=== PATIENT | male | born 1960 | race Caucasian/White ===

== ENCOUNTER 2024-01-03 11:49 | Emergency (ER) | payer MEDICAID, SELFPAY ==
[2024-01-03 12:03] VITALS: BP 197/110; PULSE 81; RESP 16; TEMP 36.9; O2SAT 98
--- NOTE | 2024-01-03 12:45 | DI.CT_ITS ---
Exam(s) CT ABDOMEN PELVIS W EXAM: CT ABDOMEN PELVIS W CLINICAL HISTORY: lower abd pain. ttp left groin TECHNIQUE: Imaging Protocol: Axial computed tomography images with coronal and sagittal reformatted images were created and reviewed. CONTRAST MATERIAL: Intravenous: Omnipaque 350 Contrast volume:100 mL Oral: No COMPARISON: No exams were available for comparison FINDINGS: ABDOMEN: Lung Bases: Normal where visualized. Liver: There is decreased attenuation of the liver consistent with fatty infiltration. No measurable mass. Portal, Superior Mesenteric, and Splenic Veins: Unremarkable. Gallbladder and Biliary Tract: No radiodense calculus or dilation. Pancreas: Normal density, no abnormal calcifications or inflammatory process. Spleen: Normal. Adrenals: No masses seen. Kidneys: Normal size, contour and axis. No radiodense stones or obstructive uropathy. No masses seen. Abdominal Aorta: There is a 3.3 x 3.3 cm infrarenal abdominal aortic aneurysm. Atherosclerotic calci fication is present. Bowel: There is diverticulosis of the colon but no evidence of acute diverticulitis. The stomach is incompletely distended limiting evaluation. There is no evidence of bowel obstruction or bowel wall thickening. Appendix is unremarkable. Peritoneal Cavity: No ascites, collection or mesenteric inflammatory response. No free air. Lymph Nodes: Within normal limits. Bones: Within normal limits for the patient's age. Soft Tissues: There is a small fat containing umbilical hernia. There is a small fat containing left inguinal hernia. PELVIS: Bladder: Symmetric distention, no gross wall thickening. Reproductive Organs: Unremarkable as visualized. Lymph Nodes: Within normal limits. Bones: Within normal limits for the patient's age. IMPRESSION: 1. No acute abdominal or pelvic process. 2. 3.3 x 3.3 cm infrarenal abdominal aortic aneurysm. No evidence of dissection. 3. Colonic diverticulosis without evidence of acute diverticulitis. 4. Small fat containing umbilical hernia and a left fat containing inguinal hernia. 5. Hepatic steatosis. RADIATION DOSE DELIVERED: Total DLP DATA REPOSITORY: All CT scans at this facility are submitted to the National Radiology Data Registry (NRDR) Dose Index Registry (DIR) with the [employer] (ACR). RADIATION OPTIMIZATION: All CT scans at this facility use at least one of these dose optimization te chniques: automated exposure control; mA and/or kV adjustment per patient size (includes targeted exa ms where dose is matched to clinical indication); or iterative reconstruction.
--- NOTE | 2024-01-03 12:58 | ED.GENADUL_ITS ---
Discharge Plan Disposition Patient Disposition: Home Condition: Stable Discharge Details Clinical Impression: Left inguinal hernia, AAA (abdominal aortic aneurysm), Diverticulosis, Hepatic steatosis, Elevated blood pressure reading Primary Care Provider: Unknown,Unknown ED Provider: Jerson Wang Home Meds and New Rx's Prescriptions: New lisinopril 20 mg tablet 20 mg PO DAILY Qty: 30 0RF Discharge Instructions Instructions: Diverticulosis (ED), Nonruptured Abdominal Aortic Aneurysm (DC), Inguinal Hernia (ED) Additional Instructions: Your blood pressure is too high. You need to take blood pressure medicine as prescribed and follow-up with the primary care physician for reassessment. You may need additional blood pressure medication should it not improve. You have a left inguinal hernia that contains fat. Please follow-up with general surgery for elective repair. You have an abdominal aortic aneurysm that is currently 3.3 x 3.3 cm. Please follow-up with vascular surgery. [facility] [place] be contacted at [phone]. Please follow-up with a primary care physician. Return to the ER immediately for any worsening or new concerning symptoms. Referrals: [facility] [Provider Group] [facility] General Mode of arrival: ambulatory . Date/Time Provider Initiated Documentation: 01/03/24 12:24 . Limitations to Documentation: no limitations . Information obtained by: patient . HPI Narrative: 63-year-old male presents with chief complaint of abdominal pain. Patient notes pain in his left groin that he has had over the past few months. He states he was throwing wood few months ago and developed pain after this. Pain initially localized to left groin but now spreads to his right groin. Pain is moderate to severe pain worse with movement of his legs and with certain positions. He denies associated testicular pain or swelling. Related Data Home Medications Medication Instructions Recorded Confirmed lisinopril 20 mg tablet 20 mg PO DAILY #30 tabs 01/03/24 Previous Rx's Medication Instructions Recorded lisinopril 20 mg tablet 20 mg PO DAILY #30 tabs 01/03/24 General Stated Complaint: Abd Prob EREN: 3 Review of Systems Constitutional Constitutional: Denies fever(s) Genitourinary Genitourinary: Reports as per HPI Exam Const General: cooperative and no acute distress HENMT Mouth: mucous membranes dry Eyes Conjunctivae: normal conjunctivae Sclera: normal sclerae Resp Auscultation: clear to auscultation bilaterally, no rales, no rhonchi and no wheezes Cardio Rate: regular rate and not tachycardic Rhythm: regular rhythm GI Inspection: no abdominal wall ecchymosis and obesity Palpation: soft, not firm, no guarding, no masses, not rigid and tender in the LLQ Skin General skin exam: no rashes or lesions noted Neuro General: patient alert, patient awake and tone normal Extrem General: no edema Psych Appearance: grossly normal Mental Status: mental status grossly normal Course Vital Signs Vital signs: Vital Signs Temperature 36.9 C 01/03/24 12:03 Pulse 81 01/03/24 12:03 Respiratory Rate 16 01/03/24 12:03 Blood Pressure 197/110 H 01/03/24 12:03 Pulse Oximetry 98 01/03/24 12:03 Temperature 36.9 C 01/03/24 12:03 Temperature Source Tympanic 01/03/24 12:03 Pulse 81 01/03/24 12:03 Respiratory Rate 16 01/03/24 12:03 Respiratory Effort Normal 01/03/24 12:31 Blood Pressure 197/110 H 01/03/24 12:03 Blood Pressure Position Sitting 01/03/24 12:03 Pulse Oximetry 98 01/03/24 12:03 Oxygen Delivery Method Room Air 01/03/24 12:03 Oxygen Flow Rate 0 01/03/24 12:03 Pain Level 0 01/03/24 12:03 Comment Pain is 0 at rest; with movement/walking increases to 8/10 01/03/24 12:03 Medical Decision Making 1300??63-year-old here with left groin pain over the past few months, now radiating from left groin to right groin, worse with elevation of his legs. No palpable hernia on examination. Plan to obtain CT of the abdomen pelvis to assess for acute surgical pathology including inguinal hernia versus diverticulitis versus AAA versus other. 1439 --Labs reviewed and nondiagnostic. CT of the abdomen pelvis was interpreted by radiology: 1. No acute abdominal or pelvic process. 2. 3.3 x 3.3 cm infrarenal abdominal aortic aneurysm. No evidence of dissection. 3. Colonic diverticulosis without evidence of acute diverticulitis. 4. Small fat containing umbilical hernia and a left fat containing inguinal hernia. 5. Hepatic steatosis. Results were discussed with the patient. Plan for follow-up with general surgery for his hernia and vascular surgery for aortic aneurysm. -- Patient is hypertensive. He notes that he has had chronically elevated high blood pressure and that he stopped taking his lisinopril years ago. I explained to him that persistently elevated blood pressure we will significantly impact his health and that his blood pressure needs to be well-controlled. Plan to initiate treatment with lisinopril today and I will provide a 30-day prescription until he is able to follow-up with a PCP. Patient will need close outpatient follow-up with PCP. Lab Data Lab results reviewed: Yes I reviewed the patient's lab results. Labs: Laboratory Tests Range/Units 01/03/24 01/03/24 13:03 13:07 WBC (4.4-10.8) 10^3/uL 8.98 RBC (4.36-5.78) 10^6/uL 5.22 Hgb (13.5-17.5) g/dL 16.0 Hct (40.0-50.0) % 47.1 MCV (80-95) fL 90 MCH (27.0-33.0) pg 30.7 MCHC (32.0-36.0) % 34.0 RDW (11.8-14.1) % 12.6 Plt Count (130-400) 10^3/uL 281 MPV (8.0-11.0) fL 10.0 Immature Gran % 0.7 Neutrophils % 58.6 Lymphocytes % 24.3 Monocytes % 9.7 Eosinophils % 5.9 Basophils % 0.8 Nucleated RBC % (0.0-0.3) % 0.0 Absolute Neutrophils (1.2-6.7) 10^3/uL 5.27 Absolute Lymphocytes (1.2-3.4) 10^3/uL 2.18 Absolute Monocytes (0.1-0.8) 10^3/uL 0.87 H Absolute Eosinophils (0.0-0.7) 10^3/uL 0.53 Absolute Basophils (0.0-0.2) 10^3/uL 0.07 Sodium (136-145) mmol/L 139 Potassium (3.5-5.1) mmol/L 4.0 Chloride (98-107) mmol/L 102 Carbon Dioxide (21.0-32.0) mmol/L 31.9 Anion Gap (3-11) mmol/L 5.1 BUN (7-18) mg/dL 12 Creatinine (0.70-1.30) mg/dL 1.0 Est GFR (CKD-EPI 2020) (mL/min/1.73m2) 84.57 Glucose (74-106) mg/dL 114 H Calcium (8.5-10.1) mg/dL 8.8 Total Bilirubin (0.2-1.0) mg/dL 0.7 AST (15-37) U/L 34 ALT (16-63) U/L 66 H Alkaline Phosphatase (46-116) U/L 91 Total Protein (6.4-8.2) g/dL 7.2 Albumin (3.4-5.0) g/dL 3.5 Lipase (16-77) U/L 21 Urine Color (Yellow) Yellow Urine Clarity (Clear) Clear Urine pH (5-8) 5.5 Ur Specific Bridger (1.005-1.025) >= 1.030 H Urine Protein (Neg-Trace) mg/dL Negative Urine Ketones (Negative) mg/dL Trace H Urine Blood (Negative) Negative Urine Nitrite (Negative) Negative Urine Bilirubin (Negative) Small H Urine Urobilinogen (Up to 0.2) mg/dL 0.2 Ur Leukocyte Esterase (Negative) Negative Urine Glucose (Negative) mg/dL Negative Quality:SDOH Health Related Social Needs: No Data to Display PFSH All Active Problems (Updated 01/03/24 @ 14:59 by Jerson Wang MD) Elevated blood pressure reading (Acute) Hepatic steatosis (Acute) Diverticulosis (Acute) AAA (abdominal aortic aneurysm) (Acute) Left inguinal hernia (Acute) Social History Smoking risk assessment performed?: No
[2024-01-03] MEDS: Normal Saline 10 ML VIAL IJ (13:11)
[2024-01-03 13:15] LABS: Abs Immature Grans 0.06 10^3/uL (0.0-0.06); Absolute Basophil Count 0.07 10^3/uL (0.0-0.2); Absolute Eosinophil Count 0.53 10^3/uL (0.0-0.7); Absolute Lymphocyte Count 2.18 10^3/uL (1.2-3.4); Absolute Monocyte Count 0.87 10^3/uL (0.1-0.8); Absolute Neutrophil Count 5.27 10^3/uL (1.2-6.7); Basophils % 0.8; Eosinophils % 5.9; HCT 47.1 % (40.0-50.0); Immature Grans % 0.7; Lymphocytes % 24.3; MCH 30.7 pg (27.0-33.0); MCV 90 fL (80-95); Monocytes % 9.7; Neutrophils % 58.6; Platelet Count 281 10^3/uL (130-400); RBC 5.22 10^6/uL (4.36-5.78); RDW 12.6 % (11.8-14.1); RDW-SD 41.8 fL; WBC 8.98 10^3/uL (4.4-10.8)
[2024-01-03 13:18] LABS: Bilirubin Small (Negative); Blood Negative (Negative); Clarity Clear (Clear); Glucose Negative (Negative); Ketones Trace mg/dL (Negative); Leukocyte Esterase Negative (Negative); Nitrite Negative (Negative); Specific Gravity >= 1.030 (1.005-1.025); Urobilinogen 0.2 mg/dL (Up to 0.2); pH 5.5 (5-8)
[2024-01-03 13:32] LABS: ALT 66 U/L (16-63); AST 34 U/L (15-37); Albumin 3.5 g/dL (3.4-5.0); Alkaline Phosphatase 91 U/L (46-116); Anion Gap 5.1 mmol/L (3-11); BUN 12 mg/dL (7-18); Bilirubin, Total 0.7 mg/dL (0.2-1.0); CO2 31.9 mmol/L (21.0-32.0); Calcium 8.8 mg/dL (8.5-10.1); Chloride 102 mmol/L (98-107); Estimated GFR 84.57 (mL/min/1.73m2); Glucose 114 mg/dL (74-106); Lipase 21 U/L (16-77); Sodium 139 mmol/L (136-145); Total Protein 7.2 g/dL (6.4-8.2)
[2024-01-03] MEDS: Normal Saline - Diluent 50 ML VIAL IJ (14:06)
[2024-01-03] MEDS: Omnipaque 350 MG/ML 100 ML BTL IJ (14:07)
[2024-01-03 14:54] VITALS: BP 209/120
[2024-01-03] MEDS: Lisinopril 10 MG TAB 20 MG PO (15:10)
--- NOTE | 2024-01-03 16:12 | NUR.NOTE ---
Referral in Care management mailbox, to establish a PCP. 1 week follow up. Tahira GAMEZ.Nursing Note:
== END 2024-01-03 15:27 | disposition home or self-care (01) ==
PROVIDERS: Emergency Provider Student in an Organized Health Care Education/Training Program
DX: K57.30 Diverticulosis of large intestine without perforation or abscess without bleeding (principal); I71.43 Infrarenal abdominal aortic aneurysm, without rupture; K42.9 Umbilical hernia without obstruction or gangrene; K40.90 Unilateral inguinal hernia, without obstruction or gangrene, not specified as recurrent; R03.0 Elevated blood-pressure reading, without diagnosis of hypertension
CPT/HCPCS: 80053; 83690; 99285; 74177; 81003; 85025; 99284; J3490

== ENCOUNTER 2024-06-06 11:13 | Outpatient (CLI) | payer MEDICAID, SELFPAY ==
[2024-06-06 12:21] LABS: Calculated LDL 145 mg/dL (<100); Cholesterol 223 mg/dL (<200); HDL Cholesterol 41 mg/dL (40-60); Triglyceride 188 mg/dL (<150)
== END 2024-06-06 11:14 | disposition home or self-care (01) ==
LOC: LBO 11:13
PROVIDERS: PCP Nurse Practitioner Family; Visit Provider Surgery
DX: R73.03 Prediabetes (principal); E66.9 Obesity, unspecified; I10 Essential (primary) hypertension; I70.90 Unspecified atherosclerosis; E78.5 Hyperlipidemia, unspecified; E88.89 Other specified metabolic disorders; I71.40 Abdominal aortic aneurysm, without rupture, unspecified; F17.200 Nicotine dependence, unspecified, uncomplicated; J44.9 Chronic obstructive pulmonary disease, unspecified
CPT/HCPCS: 36415; 80061; 83036

== ENCOUNTER 2024-07-03 02:12 | Outpatient (CLI) | payer MEDICAID, SELFPAY ==
[2024-07-03 13:33] LABS: Microalb ug/mg Crea 13.5 ug/mg Cr
[2024-07-03 13:40] LABS: ALT 54 U/L (16-63); AST 23 U/L (15-37); Albumin 3.7 g/dL (3.4-5.0); Alkaline Phosphatase 101 U/L (46-116); BUN 18 mg/dL (7-18); Bilirubin, Total 0.61 mg/dL (0.2-1.0); Calcium 9.6 mg/dL (8.5-10.1); Calculated LDL 87 mg/dL (<100); Chloride 93 mmol/L (98-107); Cholesterol 165 mg/dL (<200); Estimated GFR 84.05 (mL/min/1.73m2); Glucose 122 mg/dL (74-106); HDL Cholesterol 43 mg/dL (40-60); Magnesium 1.7 mg/dL (1.8-2.4); Potassium 3.7 mmol/L (3.5-5.1); Sodium 135 mmol/L (136-145); Total Protein 8.1 g/dL (6.4-8.2); Triglyceride 175 mg/dL (<150)
== END 2024-07-03 02:13 | disposition home or self-care (01) ==
LOC: LBO 02:12
PROVIDERS: PCP Nurse Practitioner Family; Visit Provider Student in an Organized Health Care Education/Training Program
DX: I10 Essential (primary) hypertension (principal); Z13.220 Encounter for screening for lipoid disorders
CPT/HCPCS: 36415; 80053; 80061; 82043; 82570; 83735

== ENCOUNTER 2024-08-07 02:06 | Outpatient (CLI) | payer MEDICAID, SELFPAY ==
--- NOTE | 2024-08-07 | DI.CTLCSR_ITS ---
Exam(s) CT CHEST LUNG CANCER SCREEN EXAM: CT CHEST LUNG CANCER SCREEN CLINICAL HISTORY: TOBACCO DEPENDENCE, F17.210, SCREENING FOR LUNG CANCER TECHNIQUE: Imaging Protocol: Axial computed tomography images with coronal and sagittal reformatted images were created and reviewed. Computer aided detection (CAD) was utilized. COMPARISON: CT CT ABDOMEN PELVIS W from 01/03/2024 FINDINGS: Tracheobronchial tree: Patent where visualized. No bronchiectasis. Pulmonary parenchyma: No consolidation or dominant measurable mass. No architectural distortion. Lung Nodules: There is a 3 mm nodule in the right lower lobe (series 2, image 82). Mediastinum and Yulia: No dominant adenopathy or fluid collection. The esophagus is unremarkable. Thyroid gland: Unremarkable. Lymph nodes: Unremarkable. Pleura: No effusion or pneumothorax. Heart: The heart is not dilated. Coronary artery calcification is seen. No pericardial effusion. Aorta: Thoracic aorta non-dilated.Atherosclerotic calcification is present. Upper abdomen: There is diffuse fatty infiltration of the liver. Upper abdominal valuation is limit ed due to the low-dose technique. Soft Tissues: Unremarkable. Bones: Within normal limits. IMPRESSION: 3 mm right lower lobe pulmonary nodule. Lung RADS Cat 2 - Benign Appearance / Behavior: Nodules with a very low likelihood of becoming a clin ically active cancer due to size or lack of growth Lung-RADS 1.0 CATEGORIES: Category 0 - Prior chest CT exam(s) being located for comparison. Category 1 - Annual screening in 12 months. No nodules or definitely benign nodules. Category 2 - Annual screening in 12 months. Benign appearance. Nodules with low likelihood of becomin g active cancer. Category 3 - 6-month follow-up. Probably benign. Short-term follow-up suggested. Nodules with low lik elihood of becoming active cancer. Category 4A - 3-month follow-up and CT/PET if >8 mm in size. Suspicious finding. Findings which requi re additional testing. Category 4B - Findings which require additional testing and tissue sampling. Suspicious finding. Category 4X - Category 3 or 4 nodules with additional features or imaging findings that increases the suspicion of malignancy. Modifier S- Potentially clinically significant finding. (Non lung cancer) RADIATION DOSE DELIVERED: 35.83mGy.cm Total DLP 35.83mGy.cmTotal DLP DATA REPOSITORY: All CT scans at this facility are submitted to the National Radiology Data Registry (NRDR) Dose Index Registry (DIR) with the [employer] (ACR). RADIATION OPTIMIZATION: All CT scans at this facility use at least one of these dose optimization te chniques: automated exposure control; mA and/or kV adjustment per patient size (includes targeted exa ms where dose is matched to clinical indication); or iterative reconstruction.
== END 2024-08-07 02:26 ==
LOC: DI 02:06
PROVIDERS: PCP Nurse Practitioner Family; Visit Provider Student in an Organized Health Care Education/Training Program
DX: Z12.2 Encounter for screening for malignant neoplasm of respiratory organs (principal); F17.210 Nicotine dependence, cigarettes, uncomplicated; R91.1 Solitary pulmonary nodule
CPT/HCPCS: 71271

== ENCOUNTER 2024-08-07 08:21 | Outpatient (CLI) | payer MEDICAID, SELFPAY ==
[2024-08-07 09:41] LABS: Anion Gap 6.5 mmol/L (3-11); BUN 19 mg/dL (7-18); CO2 33.5 mmol/L (21.0-32.0); CREATININE 1.1 mg/dL (0.70-1.30); Calcium 10.1 mg/dL (8.5-10.1); Chloride 99 mmol/L (98-107); Estimated GFR 74.96 (mL/min/1.73m2); Glucose 147 mg/dL (74-106); Magnesium 1.8 mg/dL (1.8-2.4); Potassium 3.7 mmol/L (3.5-5.1); Sodium 139 mmol/L (136-145)
== END 2024-08-07 08:22 | disposition home or self-care (01) ==
LOC: LBO 08:22
PROVIDERS: PCP Nurse Practitioner Family; Visit Provider Student in an Organized Health Care Education/Training Program
DX: I10 Essential (primary) hypertension (principal)
CPT/HCPCS: 36415; 80048; 83735

== ENCOUNTER 2024-09-17 13:50 | Outpatient (REF) | payer MEDICAID, SELFPAY ==
[2024-09-17 16:11] LABS: Anion Gap 11.8 mmol/L (3-11); BUN 26 mg/dL (7-18); CO2 27.2 mmol/L (21.0-32.0); CREATININE 1.4 mg/dL (0.70-1.30); Calcium 9.9 mg/dL (8.5-10.1); Chloride 99 mmol/L (98-107); Estimated GFR 56.13 (mL/min/1.73m2); Glucose 121 mg/dL (74-106); Potassium 4.3 mmol/L (3.5-5.1); Sodium 138 mmol/L (136-145)
== END 2024-09-17 13:51 | disposition home or self-care (01) ==
LOC: NCHCN 13:50
PROVIDERS: PCP Student in an Organized Health Care Education/Training Program; Visit Provider Student in an Organized Health Care Education/Training Program
DX: I10 Essential (primary) hypertension (principal)
CPT/HCPCS: 80048

== ENCOUNTER 2024-10-08 01:20 | Outpatient (CLI) | payer MEDICAID, SELFPAY ==
--- NOTE | 2024-10-08 07:15 | DI.US_ITS ---
Exam(s) US AAA DIAGNOSTIC EXAM: US AAA DIAGNOSTIC CLINICAL HISTORY: AAA screening/ATHEROSCLEROTIC CALCIFICATION noted on CT,I70.90,I71.40 COMPARISON: CT CT ABDOMEN PELVIS W from 01/03/2024 FINDINGS: Abdominal Aorta: Proximal: 2.7 x 2.6 cm Mid: 2.1 x 2.5 cm Distal: 3.3 x 3.4 cm Iliac's: Right: 1.3 x 1.6 cm Left: 1.4 x 1.4 cm Atherosclerotic disease is present. There is mural thrombus seen in the distal abdominal aortic aneu rysm. IMPRESSION: 3.3 x 3.4 cm distal abdominal aortic aneurysm. DATA REPOSITORY:
== END 2024-10-08 01:40 ==
LOC: DI 01:20
PROVIDERS: PCP Student in an Organized Health Care Education/Training Program; Visit Provider Surgery
DX: Z13.6 Encounter for screening for cardiovascular disorders (principal); I71.40 Abdominal aortic aneurysm, without rupture, unspecified
CPT/HCPCS: 76775

== ENCOUNTER 2024-10-08 07:24 | Outpatient (CLI) | payer MEDICAID, SELFPAY ==
[2024-10-08] MEDS: Inhaler, Assist Device 1 EACH MC (11:15)
[2024-10-08] MEDS: Levalbuterol HFA 15 GM INH 4 PUFF IH (11:15)
--- NOTE | 2024-10-15 16:41 | W.PFT ---
Date of service: 10/08/24 Time of Service: 10:02 Pulmonary Function Test Result Indications: COPD Interpretation Spirometry: There is no airflow limitation. There is restrictive spirometry. Lung Volumes: There is air trapping Diffusion Capacity: Normal diffusion Airway Pressure: Increased airways resistance Impression There is air trapping. Restriction is likely pseudo restriction in the setting of an elevated BMI. Clinical Correlation therefore is recommended.
== END 2024-10-08 07:25 | disposition home or self-care (01) ==
LOC: RT 07:25
PROVIDERS: PCP Student in an Organized Health Care Education/Training Program; Visit Provider Student in an Organized Health Care Education/Training Program
DX: J44.9 Chronic obstructive pulmonary disease, unspecified (principal); F17.210 Nicotine dependence, cigarettes, uncomplicated
CPT/HCPCS: 94726; 94729; 94010

== ENCOUNTER 2024-10-15 06:12 | Day surgery (SDC) | payer MEDICAID, SELFPAY ==
--- NOTE | 2024-10-14 12:54 | W.PM.DSUDISC ---
Date of service: 10/15/24 Discharge Plan Disposition Patient Disposition: Home Discharge Details Reason For Visit: hernia repair x2 Attending Provider: Alejandra De Luna Primary Care Provider: Ezequiel Roche Home Meds and New Rx's Prescriptions: New tramadol 50 mg tablet 50 mg PO Q4H PRNQty: 14 0RF Continued albuterol sulfate 90 mcg/actuation HFA aerosol inhaler 2 puff inhalation Q6H PRN amlodipine 10 mg tablet 10 mg PO DAILY lisinopril 40 mg tablet 40 mg PO DAILY fluticasone propionate 232 mcg/actuation aero powdr breath act w/sensor 1 inh inhalation BID Zyrtec 10 mg capsule 10 mg PO DAILY PRN atorvastatin 20 mg tablet 20 mg PO QHS hydrochlorothiazide 25 mg tablet 25 mg PO DAILY Discharge Instructions Additional Instructions: Dr. De Luna HERNIA REPAIR ? POSTOPERATIVE INSTRUCTIONS Patients who have this type of surgery can usually be expected to return to work within two weeks and have minimal amounts of discomfort. ? ACTIVITY: The day of surgery should be spent resting. However, you can be up for short periods of time, I.E., going to the bathroom or kitchen. Avoid lifting or straining. On the day following surgery, you can be up and about as desired. ? LIFTING: Restrict your lifting to no more than five (5) pounds for two weeks after surgery. ??We will decide when you are done with restrictions and when you can return to work, at your follow-up appointment.? No sexual activity for two weeks.? ? DIET: There are no dietary restrictions following surgery. However, you may want to start with small amounts of liquids to avoid nausea the day of surgery. ? INCISION CARE: You will notice purple skin glue closing the incision.? Do not peel this off- it will wear off on its own.? After 24 hours you may shower. The dressing may be replaced for comfort, but is not necessary. ?An ice bag may be applied to the incision for 72 hours following surgery. ? SIGNS OF INFECTION: It is not unusual to have some black and blue discoloration of the skin around the incision, but also scrotum and penis.? ?It will slowly disappear. If you have any increased redness, drainage, fever (above 100 degrees), please contact your doctor for an examination. ? DISCOMFORT: You may expect to have some mild discomfort at the incision sight. If severe pain develops you should contact your doctor for further instructions. ? URINATION: Patients who have surgery occasionally have problems urinating. If you experience problems and are not able to urinate within 6 hours following your surgery, please call your doctor immediately or go to your nearest Emergency Room for evaluation. ? DRIVING: NO driving for three (3) days after surgery, or if you are still taking narcotic pain medication.? ? MEDICATIONS: Alternate Tylenol 1000mg by mouth every 8 hours and Ibuprofen 600mg every 6 hours. ?Make sure you take ibuprofen with food and not on an empty stomach. ?Take the Tylenol and ibuprofen continuously for the first 72hrs- not just when you have pain.? Use the tramadol for breakthrough pain/pain >7.? Use ICE!?? Twenty minutes on, and then off, continuously for the first 72hours. If you are taking narcotic pain medication, follow the instructions on the label and do not drive. Pain medications can make you very constipated. Make sure you are moving your bowels daily. If not, take Miralax or Milk of Magnesia.?? Anesthesia makes you very constipated.? Take a dose of milk of magnesia the morning after surgery. ? REPORT: Unusual swelling, severe pain, unresolved nausea, signs of infection, or difficulty in urination to your surgeon. Follow up in clinic with Dr. De Luna in 2 weeks.? [phone] I postOp appt should have been made already. If not, please clinic at your earliest convenience to schedule a follow-up appointment. Stand Alone Forms: Anesthesia Discharge Inst., Nerve Block Instructions, Markel Geiger (DSU) Referrals: Alejandra De Luna DO [OSTEOPATHIC DOCTOR] - 10/28/24 10:00 am Activity:: see above Remove Dressings/Wound Care:: 24 hours Shower/Bathe:: 24 hours Diet:: As Tolerated Discharge Orders Discharge Orders: Discharge Order (Routine); Ordered 10/15/24 Ordered By: Alejandra De Luna DS: Diagnosis Discharge Diagnosis (1) Umbilical hernia: Status: Acute (2) COPD (chronic obstructive pulmonary disease): Status: Chronic (3) Smoker: Status: Acute (4) Obesity: Status: Chronic (5) Left inguinal hernia: Status: Inactive Asessment and Plan: The patient is doing well post-op from their L inguinal hernia reapir .? They are having no nausea or vomiting. They are tolerating liquids and a snack. The pt is not having any chest pain or SOB.? Their pain is adequately controlled. They have been able to urinate.? ?HEENT:? no eye pain/drainage/redness/swelling. Mild sore throat ?Cardio- NSR, no chest pain, BP stable- see VS record ?Pulm: no sob or productive cough. No hemoptysis ?Incision- dressing is c/d/i w/ no excessive bleeding or drainage ?I discussed with the patient the findings at the time of surgery and the patient?s progress. ?We reviewed expectations at home; what the patient could expect for recovery time, and in the post-operative period.? We discussed the importance of walking to avoid blood clots and pneumonia.? We discussed and reviewed the patient's post-operative wound care and dressing needs.?? We reviewed their step-kohli pain management plan, Rx called to the pharmacy of their choice.? We reviewed activity and limitations-see discharge instructions. We reviewed warning signs, and when to seek medical attention- see d/c instructions.?? Patient was given a postoperative follow-up appointment. Patient verbalized understanding of their postoperative instructions, how do to take care of themselves and their incision, and the pain management plan. Please see discharge instructions.? (6) Chronic cough: Status: Acute
--- NOTE | 2024-10-14 15:19 | ANES.PREOP_ITS ---
General Info Date of Service Date Performed: 10/15/24 Height: 5 ft 8 in Weight: 92.703 kg Body Mass Index (BMI): 31.0 Surgical Procedure: Operation Date: 10/15/24 07:40 Proposed Procedure Side Surgeon p Herniorrhaphy Inguinal/ Umbilical w/Mesh Left Alejandra De Luna DO Meds Allergies and Home Medications Allergies Allergy/AdvReac Type Severity Reaction Status Date / Time No Known Allergies Allergy Verified 10/15/24 06:35 Home Medication ?Medication ?Instructions ?Recorded albuterol sulfate 90 mcg/actuation 2 puff inhalation Q6H PRN 05/15/24 aerosol inhaler amlodipine 10 mg tablet 10 mg PO DAILY 05/15/24 cetirizine 10 mg capsule (Zyrtec) 10 mg PO DAILY PRN 05/15/24 fluticasone propionate 232 1 inh inhalation BID 05/15/24 mcg/actuation breath activated pwdr inhal,sensor lisinopril 40 mg tablet 40 mg PO DAILY 05/15/24 atorvastatin 20 mg tablet 20 mg PO QHS 09/18/24 hydrochlorothiazide 25 mg tablet 25 mg PO DAILY 09/18/24 Current Visit Medications: Current Medications Generic Name Dose Route Start Last Admin Trade Name Freq PRN Reason Stop Dose Admin Acetaminophen 1,000 mg 10/15/24 06:00 Acetaminophen 500 Mg Tab PO 10/15/24 23:59 PREOP CHARY Albuterol Sulfate 2.5 mg 10/15/24 06:00 Albuterol 2.5 Mg/3 Ml Inh Soln Vial UPD 10/15/24 23:59 PREOP CHARY Gabapentin 600 mg 10/15/24 06:00 Gabapentin 300 Mg Cap PO 10/15/24 23:59 PREOP CHARY Ringer's Solution 1,000 mls @ 80 mls/hr 10/15/24 06:00 IV 10/15/24 23:59 INFUSION CHARY Cefazolin Sodium/Dextrose 2 gm in 50 mls @ 100 mls/hr 10/15/24 06:00 Ancef Duplex IVPB 10/15/24 23:59 PREOP CHARY Ondansetron HCl 4 mg/ Sodium 52 mls @ 200 mls/hr 10/15/24 00:53 Chloride IVPB 11/14/24 00:52 Q6H PRN PRN IV Miscellaneous Supplies 1 each 10/15/24 06:00 Iv Access IV 10/15/24 23:59 DIRECTED CHARY Morphine Sulfate 2 mg 10/15/24 12:53 Morphine 4 Mg/Ml Syr IVP 11/14/24 12:52 Q1H PRN PRN Sodium Chloride 0 ml 10/15/24 06:00 Normal Saline Flush 10 Ml Syr IV 10/15/24 23:59 PRN PRN Sodium Chloride 0 ml 10/15/24 06:00 Normal Saline 10 Ml Vial IJ 10/15/24 23:59 DIRECTED PRN Sterile Water 0 ml 10/15/24 06:00 Water,Injection,Sterile 10 Ml Vial IJ 10/15/24 23:59 DIRECTED PRN Tramadol HCl 50 mg 10/15/24 00:53 Tramadol 50 Mg Tab PO 11/14/24 00:52 Q6H PRN PRN Pain PFSH Active Problems Active Problems: Problem Status Onset Code Chronic cough Acute R05.3 Obesity Chronic E66.9 Pre-diabetes Acute R73.03 Infected dental carries Acute K02.9, K04.7 COPD (chronic obstructive pulmonary disease) Chronic J44.9 Umbilical hernia Acute K42.9 AAA (abdominal aortic aneurysm) without rupture Acute I71.40 Diverticula of colon Acute K57.30 (atherosclerosis) Acute I70.90 Steatosis Acute E88.89 Hyperlipidemia Acute E78.5 Essential hypertension Acute I10 Smoker Acute F17.200 Medical History Medical History Brachial plexus injury repaired surgery Surgical History Surgical History H/O wrist surgery Tobacco Smoking/Tobacco Use Status: Current every day Tobacco Type: cigarettes Alcohol Alcohol Intake: never Substance Use Substance use: Occasionally Substance use type: marijuana Vital Signs and Lab Results Lab Results Blood Type / Crossmatch: 2 No Data to Display Complete Blood Count: 2 No Data to Display Complete Metabolic Panel: 2 Sodium 138 mmol/L (136-145) 09/17/24 11:32 Potassium 4.3 mmol/L (3.5-5.1) 09/17/24 11:32 Chloride 99 mmol/L (98-107) 09/17/24 11:32 Carbon Dioxide 27.2 mmol/L (21.0-32.0) 09/17/24 11:32 BUN 26 mg/dL (7-18) H 09/17/24 11:32 Creatinine 1.4 mg/dL (0.70-1.30) H 09/17/24 11:32 Est GFR (CKD-EPI 2020) 56.13 (mL/min/1.73m2) 09/17/24 11:32 Calcium 9.9 mg/dL (8.5-10.1) 09/17/24 11:32 Glucose 121 mg/dL (74-106) H 09/17/24 11:32 Liver Function Panel: 2 No Data to Display Coagulation Panel: 2 No Data to Display Cardiac Panel: 2 No Data to Display Arterial Blood Gas: 2 No Data to Display Venous Blood Gas: 2 No Data to Display Pancreas Panel: 2 No Data to Display Thyroid Panel: 2 No Data to Display Infectious Disease: 2 No Data to Display Blood Cultures: 2 No Data to Display Toxicology Panel: 2 No Data to Display Imaging and Studies Imaging and Studies Study information below may be from another EMR and interpreted by another provider. Please see original notes in EMR for more complete details. Other Study Summary:: 10/08/[address]: aorta 3.3x3.4. Increased from 3.3x3.3 from last year. Anesthesia Assessment and Plan Anesthesia History Personal History: No History of Anesthesia Complications Family History: No Family History of Anesthesia Complications Exercise Tolerance Exercise Tolerance: Metabolic Equivalents>4 Pertinent Negatives Pertinent Negatives: No Symptoms of GERD Cardiac & Pulmonary Exam Cardiac Exam: Normal S1/S2 Heart Sounds Pulmonary Exam: Clear Bilateral Breath Sounds Implantable Cardiac Device Does patient have a Pacemaker or an ICD?: No Airway Exam Known Difficult Airway: No Mallampati Class: 2 Mouth Opening: Normal (> 3cm) Thyromental Distance: Greater than 3 cm Neck Range of Motion: Full ROM Neck Circumference: Normal Teeth Condition: Normal Dentition Tooth Numberin 1. Edentulous 2. Broken 3. Missing 4. Missing ASA Classification ASA Score: ASA 3 Emergency Case?: No NPO Status NPO Status: NPO Clears >2 hours, Solids >8 hours Anesthesia Plan Resuscitation Status: Full Code Anesthesia Technique: General Anesthesia Airway Planned: Endotracheal Tube Pain Management: Surgeon and patient request nerve block Monitors Used: Standard Monitors
[2024-10-15] VITALS (20 sets, daily range): BP systolic 96–136; BP diastolic 53–95; PULSE 66–91; RESP 15–27; TEMP 35.9–36.3; O2SAT 81–96; BMI 31.0
[2024-10-15] MEDS: Gabapentin 300 MG CAP 600 MG PO (06:40)
[2024-10-15] MEDS: Acetaminophen 500 MG TAB 1000 MG PO (06:40)
[2024-10-15] MEDS: Lactated Ringers 1,000 ML 80 ML IV (06:52)
[2024-10-15] MEDS: Albuterol 2.5 MG/3 ML INH SOLN VIAL UPD (06:52)
[2024-10-15] MEDS: ceFAZolin 2 GM/50 ML BAG IVPB (08:08)
[2024-10-15] MEDS: Bupivacaine 0.25% Pres-Free W/EPI 30 ML VIAL (08:33)
--- NOTE | 2024-10-15 08:33 | W.ANESNERVE ---
Nerve Block Single Injection Procedure Date and Time Date Performed: 10/15/24 Procedure Start: 07:51 Location Where Procedure Performed Procedure Location: Operating Room Procedure Stop: 08:01 Reason Performed: Postoperative Analgesia Requesting Provider: Alejandra De Luna Timeout Performed Timeout Performed: Yes Monitoring Used ECG, Blood Pressure and SpO2 Sterility Sterility: Hand Hygiene, Surgical Cap, Surgical Mask, Sterile Gloves and Chlorhexidine Sedation Given During Procedure Sedation Given (Indicate Dose Given): No Sedation given Patient Mental Status Patient Mental Status: Performed under general anesthesia Nerve Block 1st Nerve Block: Laterality: Left Block Type: TAP Unilateral Ultrasound Image Saved?: Yes Needle / Catheter Used: 100mm SonoPlex II Local Anesthetic Bolus (Indicate Dose Given): Injected in 3-5ml increments after negative blood aspiration, Bupivacaine 0.25% Dose:: 20 ml and Exparel Dose:: 10 ml Additives (Indicate Dose Given): Normal Saline Ultrasound: Sterile probe cover and gel used Nerve Stimulator: Not Used Paresthesia: None Procedure Tolerated: No Complications and Patient tolerated well Procedure Outcome: Successful Performed By: Adolfo Scott 2nd Nerve Block: Laterality: Right Block Type: Rectus Shealth Unilateral Ultrasound Image Saved?: Yes Needle / Catheter Used: 100mm SonoPlex II Local Anesthetic Bolus (Indicate Dose Given): Injected in 3-5ml increments after negative blood aspiration, Bupivacaine 0.25% Dose:: 20 ml and Exparel Dose:: 10 ml Additives (Indicate Dose Given): Normal Saline Ultrasound: Sterile probe cover and gel used Nerve Stimulator: Not Used Paresthesia: None Procedure Tolerated: No Complications and Patient tolerated well Procedure Outcome: Successful Performed By: Adolfo Scott
--- NOTE | 2024-10-15 09:44 | W.PM.OP ---
Operative Note Operative Note PRE-OP DIAGNOSIS: Umbilical and left inguinal hernia POST-OP DIAGNOSIS: other (Umbilical and left indirect inguinal hernia) PROCEDURE: Open umbilical and left indirect inguinal hernia SURGEON: Alejandra Ross COMPATIBILITY TEST ENGINEER: Tahira Palm ANESTHESIA TYPE: Local By Surgeon, General LMA/ETT and Primary Nerve Block Refer to Anesthesia Record ESTIMATED BLOOD LOSS: 10 PATHOLOGY: none sent COMPLICATIONS: None Patient was transported to: PACU Patient's condition: stable Procedure Description: INDICATIONS: The pt is here today for surgery regarding symptomatic ---umbilical and inguinal hernia that has failed outpatient conservative medical management and he is here today for repair. Informed consent was obtained, explaining risks and benefits of the procedure including but not limited to bleeding, infection, pneumonia, blood clots, chronic pain, chronic numbness, damage to testicle resulting in removal, recurrence of hernia, reaction to Mesh necessitating removal, and other unforetold complications, and complications of anesthesia-which were addressed by the HOME HEALTH ADMINISTRATOR. The patient is marked in preOp prior to the procedure DESCRIPTION OF PROCEDURE:? The pt is then brought to the operative room suite. Anesthesia was administered per the Department of Anesthesia. ?A nerve block was performed by anesthesia under US guidance. The patient was prepped and draped in the usual sterile fashion using ChloraPrep scrub solution. Pause for the cause was done. He did receive preop IV antibiotics, and 30 mL of .25% Marcaine w/ epinephrine was used for local anesthetization and split between both procedures. A 1-inch incision was made in the inferiorly to the umbilicus. Umbilicus was dissected off the fascia. The surrounding tissue is dissected off the fascia.? Omentum is protruding through the defect. This was returned to the abdomen. It is not infarcted. It is ~ 4cm defect. A medium Kerlix patch was then placed in the defect, the defect was closed, over sewn with 2-0 vicryl and was copiously irrigated. Deep tissue was approximated with 3-0 Vicryl and skin was approximated with 4-0 Monocryl in a running subcuticular fashion. Skin glue was applied. Attention is then turned to the inguinal hernia defect. A #12 blade was used to make an incision over the external ring. Electrocautery used to provide hemostasis and dissect down to the fascia. The fascia was pretty much obliterated and there was nothing to open. The cord is elevated. The nerve was not identified. There is a large cord lipomas.? This is excised. Electro-cautery is used to provide hemostasis. A Beyer drain was placed around the cord to assist in mobilization. The cord was explored. ?There was is small hernia sac on the cord. There is no direct hernia pushing through the floor. The hernia sac is dissected off the cord using a combination of blunt dissection and electrocautery.? Electrocautery is used to provide hemostasis.?? There are no contents within the hernia sac.? The hernia sac is than inverted and returned to the abdominal cavity.? A small size plug is than inserted into the defect through the internal ring, and over sewn to tighten up the ring with 2-0 vicryl.? Please see RN notes from Lot number of the [employer] mesh patch/plug.? The cord structures are still able to freely move through the ring itself.? The patch was then placed onto the floor, and using 2-0 Vicryl, sewn into the pubic tubercle and the shelving portions of the inguinal ligament, in the standard Lichenstein fashion.?The fascia is poor and difficult to find fascia to sew in to. ?The tails of the mesh are brought around the cord, sewn together w/ 2-0 Vicryl, and tucked under the external oblique.? The wound was copiously irrigated. There was no bleeding noted. The drain was removed. All structures are returned to normal anatomical position. The nerve is not sewn into the mesh, nor caught up in any sutures. The external oblique is re-approximated using 2-0 vicryl in a running fashion. ?Deep tissue was approximated with 3-0 Vicryl in a running fashion, and skin was approximated with 4-0 Monocryl in a running subcuticular fashion. Skin glue and sterile dressings are applied. The patient tolerated the procedure without complications to recovery in stable condition. ALEJANDRA ROSS DO Date of Procedure: 10/15/24
--- NOTE | 2024-10-15 10:45 | W.ANESPOSTOP ---
Postoperative Evaluation Date, Time and Location Date Performed: 10/15/24 Time Performed: 10:42 Patient Location: Day Surgery Unit Vital Signs Most Recent Imported Vital Signs: Most Recent Vital Signs Temp Pulse Resp BP Pulse Ox 35.9 C L 72 16 132/76 93 10/15/24 10:23 10/15/24 10:23 10/15/24 10:23 10/15/24 10:23 10/15/24 10:23 Pain Score Most Recent Pain Score: Most Recent Pain Score Pain Level 5 10/15/24 10:23 Assessment Mental Status: Awake (Alert & Oriented to Patient Baseline) Airway and Respiratory Function: Patent airway with normal (patient baseline) respiratory exam Cardiovascular Function: Hemodynamically Stable Hydration Status: Adequately Hydrated Nausea & Vomiting: No Nausea or Vomiting Pain: Pain is tolerable per patient Peripheral Nerve Block: Regional nerve block not resolved at time of post operative discharge
--- NOTE | 2024-10-15 11:02 | W.PM.DSUDISC ---
Date of service: 10/15/24 Discharge Plan Disposition Patient Disposition: Home Discharge Details Reason For Visit: hernia repair x2 Attending Provider: Alejandra De Luna Primary Care Provider: Ezequiel Roche Home Meds and New Rx's Prescriptions: New tramadol 50 mg tablet 50 mg PO Q4H PRNQty: 14 0RF tamsulosin [Flomax] 0.4 mg capsule 0.4 mg PO QHS Qty: 30 0RF Rx Instructions: Take at night/may cause dizziness Continued albuterol sulfate 90 mcg/actuation HFA aerosol inhaler 2 puff inhalation Q6H PRN amlodipine 10 mg tablet 10 mg PO DAILY lisinopril 40 mg tablet 40 mg PO DAILY fluticasone propionate 232 mcg/actuation aero powdr breath act w/sensor 1 inh inhalation BID Zyrtec 10 mg capsule 10 mg PO DAILY PRN atorvastatin 20 mg tablet 20 mg PO QHS hydrochlorothiazide 25 mg tablet 25 mg PO DAILY Discharge Instructions Additional Instructions: Dr. De Luna HERNIA REPAIR ? POSTOPERATIVE INSTRUCTIONS Patients who have this type of surgery can usually be expected to return to work within two weeks and have minimal amounts of discomfort. ? ACTIVITY: The day of surgery should be spent resting. However, you can be up for short periods of time, I.E., going to the bathroom or kitchen. Avoid lifting or straining. On the day following surgery, you can be up and about as desired. ? LIFTING: Restrict your lifting to no more than five (5) pounds for two weeks after surgery. ??We will decide when you are done with restrictions and when you can return to work, at your follow-up appointment.? No sexual activity for two weeks.? ? DIET: There are no dietary restrictions following surgery. However, you may want to start with small amounts of liquids to avoid nausea the day of surgery. ? INCISION CARE: You will notice purple skin glue closing the incision.? Do not peel this off- it will wear off on its own.? After 24 hours you may shower. The dressing may be replaced for comfort, but is not necessary. ?An ice bag may be applied to the incision for 72 hours following surgery. ? SIGNS OF INFECTION: It is not unusual to have some black and blue discoloration of the skin around the incision, but also scrotum and penis.? ?It will slowly disappear. If you have any increased redness, drainage, fever (above 100 degrees), please contact your doctor for an examination. ? DISCOMFORT: You may expect to have some mild discomfort at the incision sight. If severe pain develops you should contact your doctor for further instructions. ? URINATION: Patients who have surgery occasionally have problems urinating. If you experience problems and are not able to urinate within 6 hours following your surgery, please call your doctor immediately or go to your nearest Emergency Room for evaluation. ? DRIVING: NO driving for three (3) days after surgery, or if you are still taking narcotic pain medication.? ? MEDICATIONS: Alternate Tylenol 1000mg by mouth every 8 hours and Ibuprofen 600mg every 6 hours. ?Make sure you take ibuprofen with food and not on an empty stomach. ?Take the Tylenol and ibuprofen continuously for the first 72hrs- not just when you have pain.? Use the tramadol for breakthrough pain/pain >7.? Use ICE!?? Twenty minutes on, and then off, continuously for the first 72hours. If you are taking narcotic pain medication, follow the instructions on the label and do not drive. Pain medications can make you very constipated. Make sure you are moving your bowels daily. If not, take Miralax or Milk of Magnesia.?? Anesthesia makes you very constipated.? Take a dose of milk of magnesia the morning after surgery. ? REPORT: Unusual swelling, severe pain, unresolved nausea, signs of infection, or difficulty in urination to your surgeon. Follow up in clinic with Dr. De Luna in 2 weeks.? [phone] I postOp appt should have been made already. If not, please clinic at your earliest convenience to schedule a follow-up appointment. Stand Alone Forms: Anesthesia Discharge Inst., [place].Nerve Block Instructions, Markel Geiger ([facility]) Referrals: Alejandra De Luna DO [OSTEOPATHIC DOCTOR] - 10/28/24 10:00 am Activity:: see above Remove Dressings/Wound Care:: 24 hours Shower/Bathe:: 24 hours Diet:: As Tolerated Discharge Orders Discharge Orders: Discharge Order (Routine); Ordered 10/15/24 Ordered By: Alejandra De Luna DS: Diagnosis Discharge Diagnosis (1) Umbilical hernia: Status: Acute (2) COPD (chronic obstructive pulmonary disease): Status: Chronic (3) Smoker: Status: Acute (4) Obesity: Status: Chronic (5) Left inguinal hernia: Status: Inactive (6) Chronic cough: Status: Acute (7) BPH associated with nocturia: Status: Acute
[2024-10-15] MEDS: Normal Saline Flush 10 ML SYR IV (11:09)
[2024-10-15] MEDS: Ketorolac 15 MG/ML VIAL IVP (11:09)
== END 2024-10-15 11:40 | disposition home or self-care (01) ==
PROVIDERS: PCP Student in an Organized Health Care Education/Training Program; Visit Provider Surgery
PROC: (CPT 49505; principal; 2024-10-15 07:30)
DX: K42.9 Umbilical hernia without obstruction or gangrene (principal); K40.90 Unilateral inguinal hernia, without obstruction or gangrene, not specified as recurrent
CPT/HCPCS: 49505; 49593; 64488; C1781; J0665; J0666; J0690; J1100; J1885; J2371; J2405; J2704; J7613

== ENCOUNTER 2025-02-11 01:54 | Outpatient (CLI) | payer MEDICARE, MEDICAID, SELFPAY ==
--- NOTE | 2025-02-11 | DI.US_ITS ---
Exam(s) US AAA DIAGNOSTIC EXAM: US AAA DIAGNOSTIC CLINICAL HISTORY: ANEURYSM OF INFRARENAL ABDOMINAL AORTA, W/O RUPTURE I71.43 COMPARISON: CT CT ABDOMEN PELVIS W from 01/03/2024 US US AAA DIAGNOSTIC from 10/08/2024 FINDINGS: Abdominal Aorta: Proximal: 2.9 x 2.8 cm Mid: 2.7 x 2.7 cm Distal: 3.3 x 3.3 cm Iliac's: Right: 1.6 x 1.3 cm Left: 1.4 x 1.4 cm No significant atherosclerotic disease is seen. IMPRESSION: 3.3 cm infrarenal abdominal aortic aneurysm. DATA REPOSITORY:
== END 2025-02-11 02:14 ==
PROVIDERS: PCP Student in an Organized Health Care Education/Training Program; Visit Provider Student in an Organized Health Care Education/Training Program
DX: Z13.6 Encounter for screening for cardiovascular disorders (principal); I71.43 Infrarenal abdominal aortic aneurysm, without rupture
CPT/HCPCS: 76775

== ENCOUNTER 2025-02-20 09:55 | Outpatient (REF) | payer MEDICARE, MEDICAID, SELFPAY ==
[2025-02-20 16:25] LABS: COMMENT (LAB VIEW ONLY) 27.67 mg/dL; Microalb ug/mg Crea 8.3 ug/mg Cr
== END 2025-02-20 09:56 | disposition home or self-care (01) ==
LOC: NCHCN 09:55
PROVIDERS: PCP Student in an Organized Health Care Education/Training Program; Visit Provider Student in an Organized Health Care Education/Training Program
DX: I10 Essential (primary) hypertension (principal)
CPT/HCPCS: 82043; 82570

== ENCOUNTER 2025-04-24 11:21 | Outpatient (CLI) | payer MEDICARE, MEDICAID, SELFPAY ==
[2025-04-24 11:52] LABS: Anion Gap 7.1 mmol/L (3-11); BUN 12 mg/dL (7-18); CO2 31.9 mmol/L (21.0-32.0); Calcium 9.5 mg/dL (8.5-10.1); Chloride 96 mmol/L (98-107); Estimated GFR 83.52 (mL/min/1.73m2); Glucose 108 mg/dL (74-106); Potassium 3.6 mmol/L (3.5-5.1); Sodium 135 mmol/L (136-145)
== END 2025-04-24 11:22 | disposition home or self-care (01) ==
PROVIDERS: PCP Student in an Organized Health Care Education/Training Program; Visit Provider Student in an Organized Health Care Education/Training Program
DX: I10 Essential (primary) hypertension (principal)
CPT/HCPCS: 36415; 80048